=== PATIENT | male | born 1975 ===

== ENCOUNTER 2021-04-22 00:35 | Emergency (ER) | payer SELFPAY ==
[~2021-04-22] VITALS: Ht 182.9 cm; Wt 99.8 kg
--- NOTE | 2021-04-22 00:39 | NUR ---
Patient to ER CHAIR to gown for evaluation. Side rails up.
[2021-04-22 00:40] VITALS: BP_SYST 127
--- NOTE | 2021-04-22 00:40 | NUR ---
Came in ER ambulatory accompanied by product safety officer this 45 year old male, [id number], breathing spontaneously at room air, not in distress, for medical clearance, history of HTN, no known allergy. Vital signs stable
--- NOTE | 2021-04-22 00:45 | NUR ---
TREVOR Chowdhury at bedside examining patient.
[2021-04-22 02:06] VITALS: BP_SYST 122
--- NOTE | 2021-04-22 02:06 | NUR ---
Patient given written and verbal discharge instructions and verbalizes understanding. ER MD discussed with patient the results and treatment provided. Patient in stable condition. ID arm band removed. No Rx of given. Patient educated to follow up with PMD. Pain Scale 0/10. Opportunity for questions provided and answered. Medically cleared by Dr. Jacobo. Discharged ambulatory accompnaied by chief technical officer
== END 2021-04-22 02:06 | disposition home or self-care (01) ==
LOC: SED 00:35
DX: S00.83XA Contusion of other part of head, initial encounter (principal); I10 Essential (primary) hypertension; Y03.8XXA Other assault by crashing of motor vehicle, initial encounter; Y93.89 Activity, other specified; Y92.89 Other specified places as the place of occurrence of the external cause; Y99.8 Other external cause status
CPT/HCPCS: 99283